=== PATIENT | male | born 1975 | race Caucasian/White ===

== ENCOUNTER 2017-01-09 21:13 | Emergency (ER) | payer MEDICAID, OTHER ==
[~2017-01-09] VITALS: Ht 162.6 cm; Wt 71.0 kg
[2017-01-09 21:17] VITALS: Ht 162.6 cm; Wt 71.0 kg
[2017-01-09] MEDS ORDERED: HYDROCODONE/APAP (5/325) TAB PO ONE (22:00)
--- NOTE | 2017-01-09 22:49 | RADRPT ---
PROCEDURE: XR Wrist. CLINICAL INDICATION: Pain. TECHNIQUE: Four AP, lateral and oblique views of the right wrist were performed. COMPARISON: No prior studies are available for comparison. FINDINGS: No evidence of fracture, dislocation, or subluxation is seen. The bones appear well mineralized. The joint spaces are well preserved. The soft tissues appear intact. IMPRESSION: Unremarkable exam of the right wrist. RPTAT: HMVK .Deshaun Winn MD, MD Date Time Electronically viewed and signed by .Deshaun Winn MD, MD on 01/09/2017 22:48 .K/
[2017-01-09] MEDS ORDERED: HYDR-902 PO (23:31)
--- NOTE | 2017-01-09 23:38 | ERD ---
ER Documentation Chief Complaint Date/Time DATE: 01/09/17 TIME: 23:35 Chief Complaint fell down walking has deformity to r wrist HPI This is a 41-year-old male who was walking and lost his balance when he fell onto an outstretched right hand. He is complaining of pain to his right wrist described as sharp and worse with movement better with rest. No radiation of pain. Denies any neck or head injury or other complaints. The pain is located at the ventral aspect of the wrist crease along the radius ROS All systems reviewed and are negative except as per history of present illness. Medications Home Meds Active Scripts Hydrocodone/Acetaminophen ([place] 10-325 Tablet) 1 Each Tablet, 1 TAB PO Q6H Y for PAIN, #20 TAB Prov:RAISSA HAIRSTON DO 01/09/17 Allergies Allergies: Coded Allergies: No Known Allergy (Unverified , 01/09/17) PMhx/Soc Medical and Surgical Hx: pt denies Medical Hx History of Surgery: Yes (L fingers repair 20 years ago) Hx Alcohol Use: No Hx Substance Use: No Hx Tobacco Use: No FmHx Family History: No coronary disease Physical Exam Vitals Vital Signs Date Time Temp Pulse Resp B/P Pulse Ox O2 Delivery O2 Flow Rate FiO2 01/09/17 21:17 98.0 61 18 158/86 100 Physical Exam Const: Well-developed, well-nourished Head: Atraumatic, normocephalic Eyes: Normal Conjunctiva, PERRLA, EOMI, normal sclera, no nystagmus ENT: Normal External Ears, Nose and Mouth, moist mucus membranes. Neck: Full range of motion. No meningismus, no lymphadenopathy. Resp: Clear to auscultation bilaterally, no wheezing, rhonchi, rales Cardio: Regular rate and rhythm, no murmurs, S1 S2 present Abd: Soft, non tender x 4, non distended. Normal bowel sounds, no guarding or rebound, no pulsitile abdominal masses or bruits Skin: No petechiae or rashes, no ecchymosis , no maculopapular rash Back: No midline or flank tenderness Ext: No cyanosis, or edema, FROM x 4, normal inspection, there is tenderness to the ventral aspect of the distal radius there is no deformity noted just tenderness and some decreased range of motion due to pain neurovascularly intact x 4 Neur: Awake and alert, STR 5/5 x 4, sensation intact x 4, no focal findings, cerebellum intact Psych: Normal Mood and Affect Results 24 hrs Current Medications Medications (Trade) Dose Ordered Sig/Bia Route PRN Reason Start Time Stop Time Status Last Admin Dose Admin Acetaminophen/ Hydrocodone Bitart ([place] (5/325)) 2 tab ONCE ONCE PO 01/09/17 22:00 01/09/17 22:01 DC 01/09/17 22:31 Procedures/MDM PROCEDURE: XR Wrist. CLINICAL INDICATION: Pain. TECHNIQUE: Four AP, lateral and oblique views of the right wrist were performed. COMPARISON: No prior studies are available for comparison. FINDINGS: No evidence of fracture, dislocation, or subluxation is seen. The bones appear well mineralized. The joint spaces are well preserved. The soft tissues appear intact. IMPRESSION: Unremarkable exam of the right wrist. RPTAT: HMVK .Deshaun Winn MD, Date Time Electronically viewed and signed by .Deshaun Winn MD, on 01/09/2017 22:48 .K/ CC: RAISSA HAIRSTON DO Patient is a wrist sprain will give a prescription for pain medication as well as a volar wrist splint Departure Diagnosis: Primary Impression: Right wrist sprain Encounter type: initial encounter Qualified Code: S63.501A - Sprain of right wrist, initial encounter Condition: Stable Patient Instructions: Wrist Sprain RAISSA HAIRSTON DO Jan 09, 2017 23:38
[2017-01-10 00:03] VITALS: BP 143/84; PULSE 57; RESP 15; TEMP 98.5
== END 2017-01-10 00:05 | disposition home or self-care (01) ==
LOC: E/R 21:13
DX: S63.501A Unspecified sprain of right wrist, initial encounter (principal); W18.39XA Other fall on same level, initial encounter; Y92.9 Unspecified place or not applicable
CPT/HCPCS: 29125; 73110; Z7502; Z7610

== ENCOUNTER 2017-03-06 19:50 | Emergency (ER) | payer MEDICAID ==
[~2017-03-06] VITALS: Ht 170.2 cm; Wt 73.0 kg
[~2017-03-06 19:50] MED LIST: HYDR-902 PO
[2017-03-06 19:57] VITALS: Ht 170.2 cm; Wt 73.0 kg
--- NOTE | 2017-03-06 20:21 | ERD ---
ER Documentation Chief Complaint Chief Complaint left iguinal pain xs 1 hour [employer], sudden onset. -n/v/d. denies medical hx HPI Otherwise healthy 42-year-old male presenting with right inguinal pain 1 hour. Patient was standing for 1 hour and the pain became worse. Pain 8 out of 10 and 10 out of 10 with palpation. Better with lying down. Feels like there is something falling out of his inguinal area. Similar symptoms in the past and he felt a bump but it spontaneously resolved. Has not taken any medications for the symptoms. Persistent pain. No surgical history. Patient has no other complaints and describes no other associated manifestations. ROS All systems reviewed and are negative except as per history of present illness. Medications Home Meds Active Scripts Hydrocodone/Acetaminophen ([place] 5-325 Tablet) 1 Each Tablet, 1 TAB PO Q6H Y for PAIN, #7 TAB Prov:CHRISTIANNE HOLCOMB PA-C 03/06/17 Hydrocodone/Acetaminophen ([place] 10-325 Tablet) 1 Each Tablet, 1 TAB PO Q6H Y for PAIN, #20 TAB Prov:RAISSA HAIRSTON DO 01/09/17 Allergies Allergies: Coded Allergies: No Known Allergy (Unverified , 03/06/17) PMhx/Soc History of Surgery: Yes (L fingers repair 20 years ago) Hx Alcohol Use: No Hx Substance Use: No Hx Tobacco Use: No Smoking Status: Never smoker Physical Exam Vitals Physical Exam Const: Well-appearing 42-year-old male and moderate distress. Laying in the bed. Head: Atraumatic Eyes: Normal Conjunctiva ENT: Normal External Ears, Nose and Mouth. Neck: Full range of motion..~ No meningismus. Resp: Clear to auscultation bilaterally Cardio: Regular rate and rhythm, no murmurs Abd: Soft mass palpated in the right inguinal area. Soft, non distended. Normal bowel sounds Skin: No petechiae or rashes Back: No midline or flank tenderness Ext: No cyanosis, or edema Neur: Awake and alert Psych: Normal Mood and Affect Results 24 hrs Laboratory Tests Test 03/06/17 20:25 White Blood Count 7.610^3/ul Red Blood Count 5.3610^6/ul Hemoglobin 15.6g/dl Hematocrit 46.2% Mean Corpuscular Volume 86.2fl Mean Corpuscular Hemoglobin 29.1pg Mean Corpuscular Hemoglobin Concent 33.8g/dl Red Cell Distribution Width 12.2% Platelet Count 75788^3/UL Mean Platelet Volume 9.3fl Neutrophils % 64.5% Lymphocytes % 22.6% Monocytes % 8.7% Eosinophils % 2.5% Basophils % 1.3% Nucleated Red Blood Cells % 0.0/100WBC Neutrophils # 4.910^3/ul Lymphocytes # 1.710^3/ul Monocytes # 0.710^3/ul Eosinophils # 0.210^3/ul Basophils # 0.110^3/ul Nucleated Red Blood Cells # 0.010^3/ul Urine Color STRAW Urine Clarity CLEAR Urine pH 6.0 Urine Specific [place] 1.012 Urine Ketones NEGATIVEmg/dL Urine Nitrite NEGATIVEmg/dL Urine Bilirubin NEGATIVEmg/dL Urine Urobilinogen NEGATIVEmg/dL Urine Leukocyte Esterase NEGATIVELeu/ul Urine Hemoglobin NEGATIVEmg/dL Urine Glucose NEGATIVEmg/dL Urine Total Protein NEGATIVEmg/dl Sodium Level 143mmol/L Potassium Level 4.0mmol/L Chloride Level 102mmol/L Carbon Dioxide Level 28mmol/L Anion Gap 17 Blood Urea Nitrogen 19mg/dl Creatinine 0.87mg/dl Glucose Level 99mg/dl Calcium Level 9.3mg/dl Total Bilirubin 0.3mg/dl Direct Bilirubin 0.00mg/dl Indirect Bilirubin 0.3mg/dl Aspartate Amino Transf (AST/SGOT) 34IU/L Alanine Aminotransferase (ALT/SGPT) 59IU/L Alkaline Phosphatase 90IU/L Total Protein 7.2g/dl Albumin 4.8g/dl Globulin 2.40g/dl Albumin/Globulin Ratio 2.00 Current Medications Medications (Trade) Dose Ordered Sig/Bia Route PRN Reason Start Time Stop Time Status Last Admin Dose Admin Morphine Sulfate (morphine) 4 mg ONCE STAT IM 03/06/17 21:12 03/06/17 21:13 DC 03/06/17 21:16 Ondansetron HCl (Zofran Odt) 4 mg ONCE STAT ODT 03/06/17 21:12 03/06/17 21:13 DC 03/06/17 21:16 IV Flush 10 ml 10 ml STK-MED ONCE .ROUTE 03/06/17 21:29 03/06/17 21:30 DC 03/06/17 22:17 Sodium Chloride (NS) 100 ml @ ud STK-MED ONCE .ROUTE 03/06/17 21:29 03/06/17 21:30 DC 03/06/17 22:17 Iohexol (Omnipaque 300mg/ ml) 150 ml STK-MED ONCE .ROUTE 03/06/17 21:29 03/06/17 21:30 DC 03/06/17 22:17 Procedures/MDM 42-year-old male with a chief complaints of right inguinal pain 1 hour as described in history and physical examination. Labs were unremarkable. CT was ordered read by the radiologist and given the following impression: 1. Fluid-filled ileal loops with round, hyperdense intraluminal contents, the largest measuring 1.5 cm, which are nonspecific with differential considerations including spontaneously hyperdense small bowel contents versus enhancing polypoid lesions. CT angiography can be performed for further evaluation. 2. Moderate bilateral fat containing inguinal hernias. At this time I have little suspicion for strangulated or incarcerated hernia, acute abdomen or serious bacterial infection. Most likely diagnosis is reducible hernia versus abdominal pain of unknown etiology. Reevaluation of the patient revealed no further symptoms. No hernia was palpated. No tenderness to palpation. Patient tolerates p.o. and is well-appearing. Appropriate for discharge at this time. I have spoke with the patient regarding their condition and future management. They have verbally responded that they understand their status and treatment plan. The patients vitals are stable, and their current condition is appropriate for discharge. The patient will be given discharge instructions with return precautions. Departure Diagnosis: Primary Impression: Groin pain, lower right quadrant Condition: Stable Additional Instructions: Follow up with your PCP within the next 1-3 days for a more thorough evaluation and a possible referral to a specialist. Return the the emergency department immediately if symptoms worsen or change. If you have any questions regarding medications, ask your pharmacist or us before you leave. If any adverse reactions occur while taking your medications, discontinue the treatment and return to the emergency department immediately. Take your medications as directed, and complete the entire course of treatment. CHRISTIANNE HOLCOMB PA-C Mar 06, 2017 20:21
[2017-03-06 20:48] LABS: BASOPHIL # 0.1 10^3/ul (0.0-0.1); BASOPHILS % 1.3 % (0.0-2.0); EOSINOPHILS # 0.2 10^3/ul (0.0-0.5); EOSINOPHILS % 2.5 % (0.0-7.0); HEMATOCRIT 46.2 % (42.0-52.0); HEMOGLOBIN 15.6 g/dl (14.0-18.0); LYMPHOCYTES # 1.7 10^3/ul (0.8-2.9); LYMPHOCYTES % 22.6 % (15.0-51.0); MEAN CORPUSCULAR HEMOGLOBIN 29.1 pg (29.0-33.0); MEAN CORPUSCULAR HGB CONC 33.8 g/dl (32.0-37.0); MEAN CORPUSCULAR VOLUME 86.2 fl (82.0-101.0); MEAN PLATELET VOLUME 9.3 fl (7.4-10.4); MONOCYTE # 0.7 10^3/ul (0.3-0.9); MONOCYTES % 8.7 % (0.0-11.0); NEUTROPHIL # 4.9 10^3/ul (1.6-7.5); NEUTROPHILS % 64.5 % (39.0-77.0); PLATELET COUNT 299 10^3/UL (140-415); RED BLOOD COUNT 5.36 10^6/ul (4.70-6.10); RED CELL DISTRIBUTION WIDTH 12.2 % (11.5-14.5); WHITE BLOOD COUNT 7.6 10^3/ul (4.8-10.8)
[2017-03-06 21:09] LABS: ADD UMIC NO; UR ASCORBIC ACID NEGATIVE (NEGATIVE); UR BILIRUBIN (Dip) NEGATIVE (NEGATIVE); UR BLOOD (Dip) NEGATIVE (NEGATIVE); UR CLARITY CLEAR (CLEAR); UR COLOR STRAW (YELLOW); UR GLUCOSE (Dip) NEGATIVE (NEGATIVE); UR KETONES (Dip) NEGATIVE (NEGATIVE); UR LEUKOCYTE ESTERASE (Dip) NEGATIVE Leu/ul (NEGATIVE); UR NITRITE (Dip) NEGATIVE (NEGATIVE); UR SPECIFIC GRAVITY (Dip) 1.012 (1.003-1.030); UR TOTAL PROTEIN (Dip) NEGATIVE (NEGATIVE); UR UROBILINOGEN (Dip) NEGATIVE (NEGATIVE)
[2017-03-06] MEDS ORDERED: morphine 4 MG/ML VIAL IM STA (21:12)
[2017-03-06] MEDS ORDERED: ONDANSETRON (ODT) 4 MG TAB ODT STA (21:12)
[2017-03-06 21:19] LABS: ALBUMIN 4.8 g/dl (3.3-4.9); BILIRUBIN,INDIRECT 0.3 mg/dl (0-1.1); BILIRUBIN,TOTAL 0.3 mg/dl (0.2-1.3); CALCIUM 9.3 mg/dl (8.4-10.2); CREATININE 0.87 mg/dl (0.61-1.24); TOTAL PROTEIN 7.2 g/dl (6.1-8.1)
[2017-03-06] MEDS ORDERED: IOHEXOL 300MG/ML 150 ML BTL ONE (21:29)
[2017-03-06] MEDS ORDERED: SOD CHLORIDE 0.9% 100 ML ONE (21:29)
--- NOTE | 2017-03-06 23:02 | RADRPT ---
PROCEDURE: CT abdomen and pelvis with contrast. CLINICAL INDICATION: Right inguinal pain. TECHNIQUE: CT scan of the abdomen and pelvis with contrast was performed after the uneventful intrav enous administration of 90 cc of Omnipaque-300. Coronal and sagittal reformatted images were obtaine d from the axial source images. The total exam CTDI equals 8.83 mGy and the total exam DLP equals 49 4.4 mGy-cm. Evaluation is partially limited due to exclusion of the dome of the liver from the field of view. One or more of the following dose reduction techniques were used: - Automated exposure control. - Adjustment of the mA and/or kV according to patient size. - Use of iterative reconstruction technique. COMPARISON: None available. FINDINGS: Visualized lower thorax: The visualized lung bases are clear. The visualized heart is unremarkable. Hepatobiliary system and spleen: The visualized portions of the liver are normal in density with no focal hepatic lesion identified. There is no intra or extrahepatic biliary ductal dilatation. The g allbladder is unremarkable. The spleen is unremarkable. The pancreas is unremarkable. Adrenal glands and genitourinary system: The adrenal glands are unremarkable. There are no renal ma sses or hydronephrosis. The urinary bladder is unremarkable. The prostate gland and seminal vesicles are unremarkable. There are moderate bilateral fat containing inguinal hernias. Gastrointestinal system: There are fluid-filled ileal loops with round, hyperdense lesions within the lumen of the ileum, the largest measuring approximately 1.5 cm. The distal small bowel loops are also partially fluid-filled and there is fecalization of the distal ileal contents, consistent with bowel stasis. There is no bowel wall thickening or evidence of obstruction. The appendix is in the right lower quadrant and is unremarkable. Peritoneum, vascular system, lymphatics: There is no free intraperitoneal air or free fluid. There is no mesenteric or retroperitoneal adenopathy. The aorta is nonaneurysmal. Musculoskeletal system and soft tissues: There are no concerning osseous lesions. The soft tissues are unremarkable. IMPRESSION: 1. Fluid-filled ileal loops with round, hyperdense intraluminal contents, the largest measuring 1.5 cm, which are nonspecific with differential considerations including spontaneously hyperdense small bowel contents versus enhancing polypoid lesions. CT angiography can be performed for further evalu ation. 2. Moderate bilateral fat containing inguinal hernias. RPTAT: HLBP .Naseem Carver MD, MD Date Time Electronically viewed and signed by .Naseem Carver MD, MD on 03/06/2017 23:01 .P/
[2017-03-06] MEDS ORDERED: HYDR-906 PO (23:39)
[2017-03-06 23:48] VITALS: BP 130/82; PULSE 62; RESP 18; TEMP 97.7
== END 2017-03-06 23:48 | disposition home or self-care (01) ==
LOC: FTE 19:50
DX: R10.31 Right lower quadrant pain (principal)
CPT/HCPCS: 74177; 80053; 81003; 85025; J2270; Q9967; Z7610; 96374